=== PATIENT | female | born 1955 | race Caucasian/White ===

== ENCOUNTER 2016-07-22 00:31 | Inpatient (IN) | payer MEDICARE ==
[~2016-07-22] VITALS: Ht 162.6 cm; Wt 114.7 kg
[2016-07-22 01:46] LABS: BASOPHILS 0.1 % (0.0-2.0); EOSINOPHILS 0 % (0-7); HEMATOCRIT 31.3 % (36.0-48.0); HEMOGLOBIN 9.8 g/dL (12-16); IMMATURE GRANULOCYTES 0.3 % (0-5); LYMPHOCYTES 6.4 % (15-50); MCH 30.8 pg (26.0-34.0); MCHC 31.3 g/dL (31.0-37.0); MCV 98.4 fL (80.0-100.0); MEAN PLATELET VOLUME 11.5 fL (7.4-10.4); MONOCYTES 2.1 % (2-11); NEUTROPHILS 91.1 % (40-80); PLATELET COUNT 256 10x3/uL (130-400); RBC 3.18 10x6/uL (4.00-5.40); RDW 13.8 % (11.5-14.5); WBC 10.8 10x3/uL (4.8-10.8)
[2016-07-22 01:50] LABS: APTT 28.2 SECONDS (22.8-39.4); INR 1.26 (0.85-1.17); PROTIME 15.7 SECONDS (11.6-15.0)
[2016-07-22 01:54] LABS: ALBUMIN 2.9 g/dL (3.4-5.0); BILIRUBIN - TOTAL 0.31 mg/dL (0.2-1.3); CALCIUM 8.9 mg/dL (8.5-10.1); CARBON DIOXIDE 20.3 mmol/L (21.0-32.0); CREATININE - SERUM 1.1 mg/dL (0.6-1.3); POTASSIUM - SERUM 4.3 mmol/L (3.5-5.1); PROTEIN - SERUM 6.4 g/dL (6.4-8.2)
[2016-07-22 04:00] VITALS: BP 142/85
[2016-07-22] MEDS ORDERED: PLAVIX75 MG PO (04:37)
[2016-07-22] MEDS ORDERED: FUROSEMIDE20 MG PO (04:38)
[2016-07-22] MEDS ORDERED: HYDROCODONE-APA1 TAB PO (04:38)
[2016-07-22] MEDS ORDERED: PROTONIX40 MG PO (04:38)
[2016-07-22] MEDS ORDERED: OXYBUTYNIN CHLOR5 MG PO (04:39)
[2016-07-22] MEDS ORDERED: POTASSIUM CHLO10 ME1 PO (04:39)
[2016-07-22] MEDS ORDERED: K-DUR20 MEQ PO (04:40)
[2016-07-22] MEDS ORDERED: TOPAMAX100 MG PO (04:40)
[2016-07-22] MEDS ORDERED: CELEBREX 100 M100 MG PO (04:40)
[2016-07-22] MEDS ORDERED: NITROSTAT0.4 MG SL (04:40)
[2016-07-22] MEDS ORDERED: PROZAC20 MG PO (04:40)
[2016-07-22] MEDS ORDERED: BUSPAR10 MG PO (04:41)
[2016-07-22] MEDS ORDERED: PROAIR HFA8.5 GM INH (04:42)
[2016-07-22] MEDS ORDERED: FLOVENT HFA 11012 GM INH (04:42)
[2016-07-22] MEDS ORDERED: LYRICA100 MG PO (04:43)
[2016-07-22] MEDS ORDERED: LOPRESSOR25 MG PO (04:43)
[2016-07-22] MEDS ORDERED: CRESTOR20 MG PO (04:44)
[2016-07-22 05:34] VITALS: BP 142/85; BMI 42.0
--- NOTE | 2016-07-22 07:07 | NUR ---
RESTING QUIETLY NAD NOTED
--- NOTE | 2016-07-22 07:30 | NUR ---
ASSESSMENT COMPLETED. NO TELEMERTY ON. LEFT HAND IV OF LR AT 100. DENIES ANY NEEDS.SR UP WITH CALL LIGHT IN REACH WILL MONITOR
[2016-07-22 07:56] VITALS: BP 138/86
[2016-07-22 12:03] VITALS: Ht 162.6 cm; Wt 114.7 kg
[2016-07-22 12:22] VITALS: BP 125/79
--- NOTE | 2016-07-22 12:36 | NUR ---
LYING QUIETLY. DENIES ANY NEEDS, CALL LIGHT IN REACH WITH BED LOW AND SR UP
[2016-07-22 16:00] VITALS: BP 110/69
[2016-07-22 18:22] LABS: HEMATOCRIT 29.3 % (36.0-48.0); HEMOGLOBIN 9.2 g/dL (12-16)
--- NOTE | 2016-07-22 18:31 | NUR ---
PT LYING QUIETLY. DENIES ANY NEEDS. CALL LIGHT IN REACH WITH SR UP. FAMILY AT BEDSIDE
--- NOTE | 2016-07-22 19:52 | NUR ---
ASSESSMENT COMPLETE, A&O. IV TO LEFT ARM WITH LR AT 100/CC HR AND PROTONIX DRIP AT 10. SITE CLEAN AND DRY. REMINDED PT OF NOTHING TO EAT OR DRINK AFTER MN FOR EGD IN AM, PT STATED UNDERSTANDING. PT DENIES PAIN OR NEEDS, BED LOW, CL IN REACH.
--- NOTE | 2016-07-22 20:46 | NUR ---
HS MEDS GIVEN WITH FRESH ICE WATER, PT DENIES PAIN OR NEEDS, FAMILY AT BED SIDE.
[2016-07-22 20:49] VITALS: BP 134/83
--- NOTE | 2016-07-22 21:40 | NUR ---
CONSENTS SIGNED AND WITNESSED FOR EGD WITH TIVA AND BLOOD TRANSFUSION. IV, 20 GAUGE SITED TO RIGHT HAND TO RECIEVE 1 UNIT OF PRBC FOR HGB OF 9.2. 1 STICK, PT TOLERATED WELL.
--- NOTE | 2016-07-23 00:05 | NUR ---
PT UP IN ROOM. NO DISTRESS NOTED.
[2016-07-23 00:36] VITALS: BP 143/74
--- NOTE | 2016-07-23 00:40 | NUR ---
1 UNIT PRBCS HUNG BY SAMARA CORADO RN TO RIGHT HAND 20 GUAGE, VITALS STABLE, WILL CONT TO MONITOR.
--- NOTE | 2016-07-23 03:28 | NUR ---
PRBC FINISHED INFUSING, VITALS STABLE, NO S/S ADVERSE REACTION NOTED.
[2016-07-23 04:39] VITALS: BP 145/96
[2016-07-23 06:42] LABS: BASOPHILS 0.1 % (0.0-2.0); EOSINOPHILS 0 % (0-7); HEMATOCRIT 26.3 % (36.0-48.0); HEMOGLOBIN 8.4 g/dL (12-16); IMMATURE GRANULOCYTES 0.2 % (0-5); LYMPHOCYTES 17.4 % (15-50); MCH 30.8 pg (26.0-34.0); MCHC 31.9 g/dL (31.0-37.0); MEAN PLATELET VOLUME 11.6 fL (7.4-10.4); MONOCYTES 7.3 % (2-11); PLATELET COUNT 209 10x3/uL (130-400); RBC 2.73 10x6/uL (4.00-5.40); RDW 15.7 % (11.5-14.5); WBC 11.4 10x3/uL (4.8-10.8)
[2016-07-23 06:53] LABS: INR 1.21 (0.85-1.17); PROTIME 15.2 SECONDS (11.6-15.0)
[2016-07-23 07:00] LABS: MCV 96.3 fL (80.0-100.0)
[2016-07-23 07:04] LABS: ALBUMIN 2.6 g/dL (3.4-5.0); ALKALINE PHOSPHATASE 49 U/L (46-116); ALT (SGPT) 15 U/L (10-68); CALC OSMOLALITY 302 mosm/kg (275-300); CARBON DIOXIDE 20.5 mmol/L (21.0-32.0); CHLORIDE - SERUM 114 mmol/L (98-107); GLUCOSE 108 mg/dL (74-106); MAGNESIUM - SERUM 1.8 mg/dL (1.8-2.4); PHOSPHOROUS 2.6 mg/dL (2.5-4.9); PROTEIN - SERUM 5.6 g/dL (6.4-8.2); SODIUM 144 mmol/L (136-145); UREA NITROGEN 55 mg/dL (7-18)
[2016-07-23 07:10] LABS: CREATININE - SERUM 0.8 mg/dL (0.6-1.3); POTASSIUM - SERUM 3.5 mmol/L (3.5-5.1); eGFR NON AFRICAN AMERICAN 77 mL/min (90-120)
--- NOTE | 2016-07-23 07:30 | NUR ---
RESTING QUIETLY DENIES ANY NEEDS OR DISCOMFORT NAD NOTED
[2016-07-23 09:31] VITALS: BP 146/66
[2016-07-23 12:55] VITALS: BP 165/98
--- NOTE | 2016-07-23 13:27 | NUR ---
[id number] PRBCs INFUSION STARTED AT AT THIS TIME NAD NOTED
[2016-07-23 16:59] VITALS: BP 117/69
--- NOTE | 2016-07-23 19:03 | NUR ---
SITTING UP IN BED, AAOX3, SKIN WARM AND DRY, RESP UNLABORED, IV PATENT TO LEFT HAND, MOOD PLEASANT, NO DISTRESS NOTED
[2016-07-23 19:11] LABS: HEMATOCRIT 26.7 % (36.0-48.0); HEMOGLOBIN 8.7 g/dL (12-16)
--- NOTE | 2016-07-23 22:50 | NUR ---
ONE UNIT OF PRBC STARTED, VS WNL, WILL MONITOR
--- NOTE | 2016-07-24 01:45 | NUR ---
PRBC COMPLETE, IKER WELL
[2016-07-24 02:34] VITALS: BP 127/69
[2016-07-24 04:44] VITALS: BP 106/68
--- NOTE | 2016-07-24 05:58 | NUR ---
RESTING QUIETLY IN BED, NO DISTRESS NOTED
[2016-07-24 06:24] LABS: BASOPHILS 0.2 % (0.0-2.0); EOSINOPHILS 0.2 % (0-7); HEMATOCRIT 29.5 % (36.0-48.0); HEMOGLOBIN 9.7 g/dL (12-16); IMMATURE GRANULOCYTES 0.2 % (0-5); LYMPHOCYTES 19.4 % (15-50); MCH 30.4 pg (26.0-34.0); MCHC 32.9 g/dL (31.0-37.0); MEAN PLATELET VOLUME 11.7 fL (7.4-10.4); MONOCYTES 7.8 % (2-11); NEUTROPHILS 72.2 % (40-80); PLATELET COUNT 189 10x3/uL (130-400); RBC 3.19 10x6/uL (4.00-5.40); RDW 15.8 % (11.5-14.5)
[2016-07-24 06:27] LABS: MCV 92.5 fL (80.0-100.0); WBC 8.1 10x3/uL (4.8-10.8)
[2016-07-24 06:32] LABS: CALC OSMOLALITY 287 mosm/kg (275-300); CALCIUM 8.4 mg/dL (8.5-10.1); CARBON DIOXIDE 23.4 mmol/L (21.0-32.0); CHLORIDE - SERUM 111 mmol/L (98-107); CREATININE - SERUM 0.7 mg/dL (0.6-1.3); GLUCOSE 82 mg/dL (74-106); POTASSIUM - SERUM 3.1 mmol/L (3.5-5.1); SODIUM 143 mmol/L (136-145); UREA NITROGEN 25 mg/dL (7-18); eGFR NON AFRICAN AMERICAN 90 mL/min (90-120)
[2016-07-24 08:03] VITALS: BP 127/76
--- NOTE | 2016-07-24 10:58 | NUR ---
INITIATED PTS BLOOD TRANSFUSION. PT IS GONNA RECIEVE 1 UNIT PER ORDER OF PARAMETERS FOR HGB <10. PT IS SITTING ON EDGE OF BED RESTING AND STATES SHE IS COMFORTABLE. VSS AND BEING MONITERED Q15MIN PER PROTOCOL/POLICY. BLOOD INFUSING VIA R.HAND PIV @75ML/HR. PT DENIES ANY S/S OF REACTION AND NONE WERE NOTED. CL IN REACH, BED IN LOWEST, SIDE RAILS X2. WILL CTM.
--- NOTE | 2016-07-24 11:17 | NUR ---
FIRST 15 MINS OF TRANSFUSION DONE AND NO REACTIONS NOTED. PT STILL SITTING UP ON EDGE OF BED AND DENIES ANY PAIN OR NEEDS. VSS AND STILL BEING MONITERED. NO FURTHER NEEDS AT THIS TIME. WILL CPOC.
--- NOTE | 2016-07-24 12:16 | NUR ---
ADMINISTERED PTS OXYBUTIN FOR HER OVERACTIVE BLADDER. PT IS SITTING UP ON EDGE OF BED EATING HER LUNCH. BLOOD STILL TRANSFUSING AND GOING WELL, NO S/S OF ANY REACTION NOTED. VSS AND STILL BEING RECORDED. NO FURTHER NEEDS AT THIS TIME. CL IN REACH, BED IN LOWEST, SIDE RAILS X2. WILL CTM.
--- NOTE | 2016-07-24 12:40 | OP ---
PATIENT NAME: CORNELIUS NICHOLSON MEDICAL RECORD: [id number] LOCATION:D.M2 D.2128 ADMISSION DATE:07/22/16 SURGEON: EARNEST ENGLE MD DATE OF OPERATION: 07/23/2016 ATTENDING PHYSICIAN: Dr. Nicholas Riley. PRIMARY CARE PHYSICIAN: Dr. Vanessa Waters. INDICATIONS: Ms. Nicholson is a pleasant 61-year-old woman who presented to the Emergency Department secondary to symptoms of abdominal pain and dark stools. She has had no hematemesis, but had some bright red blood per rectum as well as GE reflux symptoms. She had been taking Naprosyn, Celebrex, aspirin and Plavix (she had a coronary stent placed January 2016). She more recently stopped the Naprosyn, she does take Protonix daily. She had a colonoscopy with Dr. Perez within the past year with findings showing diverticulosis, but does not recall having an EGD in the past. On admission, her hemoglobin was 9.8, this morning it is 8.4 and she is to receive 1 unit of packed red blood cells. She presents for inpatient EGD. PREMEDICATIONS: Total IV anesthesia, ASA 4 (coronary artery disease and COPD), propofol 350 mg. INSTRUMENT: Olympus video gastroscope. PROCEDURE AND FINDINGS: After receiving informed consent, Ms. Nicholson's posterior pharynx was anesthetized with Cetacaine spray, placed in the left lateral decubitus position, sedated as per anesthesia. After achieving adequate level of sedation, gastroscope was introduced per orally and advanced to the duodenum without difficulty. The esophageal mucosa was without erythema, ulcers, strictures, masses, appeared normal down the GE junction. Small hiatal hernia is present. Gastric mucosa was notable for prepyloric and antral erythema with multiple prepyloric as well as pyloric channel ulcers. The ulcers were slightly cratered with white yellow base. In the pyloric channel, the larger ulcer had a small visible vessel (no active hemorrhage). The ulcers vessel was injected with a total of 2 cc of 1:10,000 epinephrine which was followed by gold probe cauterization with good results in hemostasis. The antrum was then biopsied to rule out Helicobacter pylori. There is coffee-ground liquid in the cardia and fundus. There are no sites of active bleeding in the body or in the proximal stomach. Pylorus was wide open. The duodenal mucosa was without erythema or ulcers, appeared normal through the second portion. Gastroscope was then withdrawn. Ms. Nicholson tolerated the procedure well, no immediate complications. ASSESSMENT: 1. Small hiatal hernia. 2. Multiple prepyloric and pyloric channel ulcers; larger pyloric channel ulcer with small visible vessel, status post epinephrine injection and gold probe cauterization for hemostasis with good results. 3. Mild gastritis. 4. Gastric ulcers likely secondary to naproxen, Celebrex and aspirin, rule out Helicobacter pylori. OPERATIVE REPORT [id number] PHILIPPDANUTACORNELIUS RECOMMENDATIONS: 1. Follow up histopathology. 2. Avoid nonsteroidal anti-inflammatory drugs. 3. Clear liquid diet. 4. Continue Protonix drip today and change to 40 mg p.o. b.i.d. tomorrow if there is no further bleeding and if hemoglobin and hematocrit is stable. 5. Carafate liquid p.o. q.6 hours. TRANSINT:[id number] Voice Confirmation ID: [id number] DOCUMENT ID: [id number] EARNEST ENGLE MD at 1240 CC: KATHLEEN PEREZ MD and BRITNEY WATERS MD [id number] DICTATION DATE: 07/23/16 1105 GENERAL OFFICE WORKER: 07/23/16 1302 ADM IN [facility] [address] [place] [address]
--- NOTE | 2016-07-24 12:45 | NUR ---
PT HAD LOOSE BOWEL MOVEMENT THAT WAS VERY DARK IN COLOR ALMOST GREENISH TINT. PT PREVIOUSLY DENIED HAVING ANY MORE DARK STOOLS AND STATES IT DID STOP AND THIS IS THE FIRST ONE IN OVER A DAY. WILL CTM AND WATCH FOR BLOODY STOOLS.
[2016-07-24 13:00] VITALS: BP 146/90
--- NOTE | 2016-07-24 13:18 | NUR ---
PTS R.HAND PIV INFLITRATED DURING BLOOD TRANSFUSION. PT DOESNT WANT ANOTHER IV SO SHE IS CURRENTLY RECIEVING BLOOD VIA HER L.HAND PIV AND HER PROTONIX IS ON HOLD UNTIL TRANSFUSION COMPLETE. VS STILL STABLE. PT DENIES ANY PAIN OR FURTHER NEEDS. WILL CTM.
--- NOTE | 2016-07-24 14:05 | NUR ---
BLOOD TRANSFUSION COMPLETED. VSS THROUGHOUT WHOLE TRANSFUSION. NO REACTION NOTED. PT RESTING IN BED DENIES ANY CURRENT NEEDS AT THIS TIME. CL IN REACH, WILL CPOC.
[2016-07-24 15:11] LABS: HEMATOCRIT 33.7 % (36.0-48.0); HEMOGLOBIN 11.3 g/dL (12-16)
[2016-07-24 16:23] VITALS: BP 115/75
--- NOTE | 2016-07-24 18:27 | NUR ---
D/C PTS L.HAND PIV R/T IT BURNING HER AND BEING SLIGHTLY REDDENED AND WARM TO THE TOUCH. PT REFUSED TO HAVE A NEW IV STARTED WITH HOPES OF BEING D/C TOMORROW AND NOT NEEDING IT. PT AGREED TO HAVE A NEW ONE PLACED IF SHE ENDS UP NEEDING MORE BLOOD. PT RESTING WITH FAMILY AT BEDSIDE. DENIES ANY PAIN OR FURTHER NEEDS AT THIS TIME. CL IN REACH, BED IN LOWEST, SIDE RAILS X2. WILL CPOC.
[2016-07-24 21:14] LABS: HEMATOCRIT 34.3 % (36.0-48.0); HEMOGLOBIN 11.3 g/dL (12-16)
[2016-07-24 22:42] VITALS: BP 121/71
[2016-07-25 05:07] LABS: BASOPHILS 0.3 % (0.0-2.0); EOSINOPHILS 0.9 % (0-7); HEMATOCRIT 32.5 % (36.0-48.0); HEMOGLOBIN 10.8 g/dL (12-16); IMMATURE GRANULOCYTES 0.2 % (0-5); LYMPHOCYTES 17.6 % (15-50); MCH 30.2 pg (26.0-34.0); MCHC 33.2 g/dL (31.0-37.0); MCV 90.8 fL (80.0-100.0); MEAN PLATELET VOLUME 11.4 fL (7.4-10.4); PLATELET COUNT 193 10x3/uL (130-400); RBC 3.58 10x6/uL (4.00-5.40); RDW 15.6 % (11.5-14.5); WBC 9.4 10x3/uL (4.8-10.8)
[2016-07-25 05:26] LABS: CALC OSMOLALITY 284 mosm/kg (275-300); CALCIUM 8.6 mg/dL (8.5-10.1); CARBON DIOXIDE 22.2 mmol/L (21.0-32.0); CHLORIDE - SERUM 110 mmol/L (98-107); CREATININE - SERUM 0.7 mg/dL (0.6-1.3); GLUCOSE 87 mg/dL (74-106); SODIUM 143 mmol/L (136-145); eGFR NON AFRICAN AMERICAN 90 mL/min (90-120)
[2016-07-25 05:35] VITALS: BP 134/69
[2016-07-25 05:38] LABS: UREA NITROGEN 14 mg/dL (7-18)
--- NOTE | 2016-07-25 06:35 | NUR ---
RESTING QUIETLY IN BED, NO DISTRESS NOTED
--- NOTE | 2016-07-25 06:58 | NUR ---
RECEIVED REPORT FROM CONSTRUCTION CREW MEMBER NURSE, LILIAM SHAW. PT IN BED, SLEEPING AT THIS TIME. CALL LIGHT IN REACH, NAD NOTE, WILL CONTINUE TO MONITOR.
[2016-07-25 07:52] VITALS: BP 140/83
--- NOTE | 2016-07-25 08:55 | NUR ---
ADMINISTERED MORNING MEDICATIONS, PT UP TO SIDE OF BED, EATING BREAKFAST AT THIS TIME. CALL LIGHT IN REACH, NAD NOTED, WILL CONTINUE TO MONITOR.
[2016-07-25] MEDS ORDERED: CARAFATE1 G/10 ML PO (09:41)
[2016-07-25] MEDS ORDERED: PROTONIX40 MG PO (09:41)
--- NOTE | 2016-07-25 10:39 | NUR ---
Patient Name: CORNELIUS NICHOLSON Admission Status: ER Accout number: [id number] Admission Date: 07-22-2016 : 1955 Admission Diagnosis:GASTROINTESTINAL HEMORRHAGE, UNSPECIFIED Attending: JENNIFER Current LOS: 3 Anticipated DC Date: 07-25-2016 Planned Disposition: Home Primary Insurance: [employer] ADV Discharge Planning Comments: * Is the patient Alert and Oriented? Yes 0 * How many steps to enter\exit or inside your home? NONE 0 * PCP DR. BRITNEY BECK 0 * Pharmacy [facility] 0 * Preadmission Environment Home with Family 0 * ADLs Independent 0 * Equipment [employer] Rolling Walker 0 * Other Equipment [employer] - MEDICAL EQUIPMENT PROVIDER 0 * List name and contact numbers for known caregivers / representatives who currently or will assist patient after discharge: ALFREDA PULIDO, 0 * Community resources currently utilized None 0 * Please name any agencies selected above. NONE 0 * Additional services required to return to the preadmission environment? No 0 * Can the patient safely return to the preadmission environment? Yes 0 * Has this patient been hospitalized within the prior 30 days at any hospital? No 0 CM MET WITH PT IN ROOM TO DISCUSS DISCHARGE PLANNING AND NEEDS. PT REPORTS LIVING IN AN APARTMENT INDEPENDENTLY WITH ADULT DAUGHTER. PT HAS BIPAP AND ROLLLING WALKER WITH SEAT PROVIDED BY [employer]. PT HAS NO OUTSIDE SERVICES ASSISTING IN THE HOME. CM DISCUSSED AVAILABILITY OF HOME HEALTH, REHAB SERVICES AND MEDICAL EQUIPMENT. PT DENIES DISCHARGE NEEDS, REPORTS HER GRANDDAUGHTER WILL PICK HER UP TODAY FOR DISCHARGE HOME. IMPORTANT MESSAGE FROM MEDICARE PROVIDED AND EXPLAINED. Metal Wire Coating Operator: Kamaljit Thompson
--- NOTE | 2016-07-25 11:05 | NUR ---
PROVIDED VERBAL AND WRITTEN DISCHARGE TEACHING TO PT, PT VERBALIZED UNDERSTADNING REGARING [place]. D/C HEART MONITOR, PT WAITING ON RIDE TO GET HERE, WILL NOTIFY NURSE WHEN SHE IS READY FOR A WHEELCHAIR. NAD NOTED, WILL CONTINUE TO MONITOR.
--- NOTE | 2016-07-25 12:00 | NUR ---
PT LEFT THE UNIT VIA WHEELCHAIR, NAD NOTED.
== END 2016-07-25 12:00 | disposition home or self-care (01) | DRG 378 ==
LOC: D.ER 00:31 → D.M2 02:53
PROVIDERS: Emergency Medicine; Internal Medicine Gastroenterology; ADMIT Family Medicine
PROC: 3E0G8GC Introduction of Other Therapeutic Substance into Upper GI, Via Natural or Artificial Opening Endoscopic (ICD-10-PCS; principal; 2016-07-23 09:00)
DX: K25.4 Chronic or unspecified gastric ulcer with hemorrhage (principal); K57.92 Diverticulitis of intestine, part unspecified, without perforation or abscess without bleeding; Z68.41 Body mass index [BMI] 40.0-44.9, adult; D50.0 Iron deficiency anemia secondary to blood loss (chronic); K44.9 Diaphragmatic hernia without obstruction or gangrene; K29.70 Gastritis, unspecified, without bleeding; E78.5 Hyperlipidemia, unspecified; J44.9 Chronic obstructive pulmonary disease, unspecified; N32.81 Overactive bladder; F41.8 Other specified anxiety disorders; E87.6 Hypokalemia; K21.9 Gastro-esophageal reflux disease without esophagitis; E66.9 Obesity, unspecified; M19.90 Unspecified osteoarthritis, unspecified site; M54.5 Low back pain; Z86.73 Personal history of transient ischemic attack (TIA), and cerebral infarction without residual deficits; Z87.891 Personal history of nicotine dependence